=== PATIENT | male | born 1955 | race Caucasian/White ===

== ENCOUNTER → 2018-06-10 15:47 | Outpatient (CLI) | payer OTHER, SELFPAY ==
[2018-06-10 16:50] LABS: PSA,Total- Diagnostic 5.49 ng/mL (0.0-4.0)
== END ==
PROVIDERS: Visit Provider Nurse Practitioner Adult Health
DX: R97.20 Elevated prostate specific antigen [PSA] (principal)
CPT/HCPCS: 36415; 84153